=== PATIENT | female | born 2000 | race Two or more races ===

== ENCOUNTER 2025-01-04 16:54 | Inpatient (IN) | payer SELFPAY ==
[~2025-01-04] VITALS: Ht 157.5 cm; Wt 79.1 kg
[2025-01-04] MEDS ORDERED: 0.9% SODIUM CHLORIDE 10 ML SYRINGE IVP PRN (17:15)
[2025-01-04] MEDS ORDERED: SODIUM CHLORIDE 0.9% 500 ML IV ONE (17:24)
[2025-01-04 17:35] LABS: PLATELET COUNT (AUTO) 185 K/uL (150-450); RED BLOOD CELL COUNT(AUTO) 2.56 MIL/uL (4.00-5.20); RED CELL DISTRIBUTION WIDTH 16.7 % (11.5-14.5); WHITE BLOOD COUNT (AUTO) 8.3 K/uL (4.5-11.0)
[2025-01-04] MEDS: SODIUM CHLORIDE 0.9% 500 ML IV ONE (17:48)
[2025-01-04] MEDS: LORazepam 2 MG/ML VIAL IVP ONE (17:52)
[2025-01-04 17:54] LABS: CALCIUM, TOTAL 8.3 mg/dL (8.8-10.5); CREATININE 15.2 mg/dL (0.60-1.30); GLOMERULAR FILTR. RATE CALC 3.0 mL/min (>60); GLUCOSE,RANDOM 110.0 mg/dL (70-110); SODIUM SERUM 137.0 mmol/L (136-145); UREA NITROGEN, BLOOD 95.0 mg/dL (7-18)
[2025-01-04 18:03] LABS: LACTIC ACID 0.7 mmol/L (0.4-2.0)
[2025-01-04] MEDS ORDERED: CARV25 PO (18:10)
[2025-01-04] MEDS ORDERED: GABA-1181 PO (18:10)
[2025-01-04] MEDS ORDERED: MIRT-89 PO (18:10)
[2025-01-04] MEDS ORDERED: LORA1TAB25 PO (18:10)
[2025-01-04] MEDS ORDERED: HYDR50TA36 PO (18:10)
[2025-01-04] MEDS ORDERED: DAPA10TA PO (18:10)
[2025-01-04] MEDS ORDERED: SACU1TAB PO (18:10)
[2025-01-04] MEDS ORDERED: NIFE-40 PO (18:10)
[2025-01-04] MEDS ORDERED: VENL-68 PO (18:10)
[2025-01-04] MEDS ORDERED: ISOS10TA16 PO (18:10)
[2025-01-04] MEDS ORDERED: OXYC-38 PO (18:10)
[2025-01-04] MEDS ORDERED: PANT-31 PO (18:10)
[2025-01-04] MEDS ORDERED: HYDR50CA7 PO (18:10)
[2025-01-04] MEDS: VANCOMYCIN HCL 1 GM in DEXTROSE 5%-WATER 250 ML IV ONE (18:27)
[2025-01-04] MEDS ORDERED: CALCIUM GLUCONATE 0.465 MEQ/ML 10 ML VIAL ONE (18:30)
[2025-01-04] MEDS: CALCIUM GLUCONATE 100 MG/ML 10 ML IVP ONE (18:32)
[2025-01-04] MEDS: SODIUM BICARBONATE [ADULT] 8.4% 50 MEQ/50 ML SYRINGE IVP ONE (18:33)
[2025-01-04] MEDS: DEXTROSE 50%-WATER 25 GM/50 ML SYRINGE IVP ONE (18:33)
[2025-01-04] MEDS: INSULIN REGULAR, HUMAN 100 UNITS/ML IVP ONE (18:33)
[2025-01-04] MEDS: ONDANSETRON HCL 4 MG/2 ML VIAL IVP ONE (18:52)
[2025-01-04] MEDS ORDERED: ISOS20TA9 PO (20:10)
[2025-01-04] MEDS ORDERED: ACETAMINOPHEN 325 MG TABLET PO PRN (20:15)
[2025-01-04] MEDS: DOCUSATE SODIUM 100 MG CAPSULE PO SCH (20:30)
[2025-01-04] MEDS: FOLIC ACID/VIT B COMPLEX AND C TABLET PO SCH (21:25)
[2025-01-04] MEDS: GENTAMICIN 120 MG/NACL ISO-OSM 100 ML IV ONE (21:26)
[2025-01-04 22:18] VITALS: BP 162/119; PULSE 113; RESP 19; TEMP 98.4; O2SAT 99
[2025-01-04] MEDS ORDERED: HYDROCODONE/ACETAMINOPHEN 5-325 MG TABLET PO PRN (23:15)
[2025-01-05] VITALS (14 sets, daily range): BP systolic 120–164; BP diastolic 60–101; PULSE 90–109; RESP 18–23; TEMP 97.6–100; O2SAT 95–98
[2025-01-05] MEDS: ONDANSETRON HCL 4 MG/2 ML VIAL IVP PRN (00:54)
[2025-01-05 06:20] LABS: PLATELET COUNT (AUTO) 166 K/uL (150-450); RED BLOOD CELL COUNT(AUTO) 2.29 MIL/uL (4.00-5.20); RED CELL DISTRIBUTION WIDTH 16.8 % (11.5-14.5); WHITE BLOOD COUNT (AUTO) 5.6 K/uL (4.5-11.0)
[2025-01-05 06:26] LABS: CALCIUM, TOTAL 7.9 mg/dL (8.8-10.5); CREATININE 5.07 mg/dL (0.60-1.30); GLOMERULAR FILTR. RATE CALC 11.0 mL/min (>60); GLUCOSE,RANDOM 127.0 mg/dL (70-110); SODIUM SERUM 140.0 mmol/L (136-145); UREA NITROGEN, BLOOD 27.0 mg/dL (7-18)
[2025-01-05 06:29] LABS: PHOSPHORUS 3.0 mg/dL (2.5-4.9)
[2025-01-05] MEDS: FAMOTIDINE 20 MG TABLET PO SCH (09:24)
[2025-01-05] MEDS: EPOETIN ALFA 10,000 UNITS/ML VIAL SQ SCH (09:31)
[2025-01-05] MEDS: LOSARTAN POTASSIUM 25 MG TABLET PO SCH (15:05)
== END 2025-01-05 18:45 | disposition left against medical advice (07) | DRG 314 ==
LOC: EMS 16:54 → EDH 20:01 → 5N 22:02
PROVIDERS: ADMIT Internal Medicine; ATTEND Internal Medicine
PROC: 5A1D70Z Performance of Urinary Filtration, Intermittent, Less than 6 Hours Per Day (ICD-10-PCS; principal; 2025-01-05)
DX: T80.211A Bloodstream infection due to central venous catheter, initial encounter (principal); J18.9 Pneumonia, unspecified organism; N18.6 End stage renal disease; I42.9 Cardiomyopathy, unspecified; E87.5 Hyperkalemia; D64.9 Anemia, unspecified; I16.0 Hypertensive urgency; F41.9 Anxiety disorder, unspecified; Z53.29 Procedure and treatment not carried out because of patient's decision for other reasons; I10 Essential (primary) hypertension; E87.70 Fluid overload, unspecified; E87.6 Hypokalemia; Z79.899 Other long term (current) drug therapy; Z99.2 Dependence on renal dialysis
CPT/HCPCS: 71045; 80048; 83605; 83735; 84100; 84145; 84703; 85025; 85610; 87040; 87076; 87081; 87205; 87340; 90935; 93005; 96361; 96365; 96366; 96375; J0360; J0610; J0885; J1171; J1580; J1815; J2060; J2405; J3373; J3490; J7030; J7040; J7060; 36415-L1; 36415-TC